=== PATIENT | female | born 1975 | race Caucasian/White ===

== ENCOUNTER 2024-02-10 15:01 | Observation (INO) | payer OTHER | END 2024-02-10 16:00 | disposition other institution (70) | LOC: CC.MS 15:01 | PROVIDERS: ADMIT Family Medicine; ATTEND Physician Assistant Medical | DX: K83.1 Obstruction of bile duct (principal); I10 Essential (primary) hypertension; Z79.899 Other long term (current) drug therapy ==

== ENCOUNTER 2024-06-24 11:27 | Emergency (ER) | payer OTHER ==
[2024-06-24] MEDS: Take Home: Amoxicillin/Clavulanate K 875-125 MG Tab, 2 Tab Pack PO ONE (11:51)
== END 2024-06-24 11:58 | disposition home or self-care (01) ==
LOC: CC.ED 11:27
DX: J02.9 Acute pharyngitis, unspecified (principal); L03.012 Cellulitis of left finger; I10 Essential (primary) hypertension; Z90.49 Acquired absence of other specified parts of digestive tract
CPT/HCPCS: 99283; A9270-GY